=== PATIENT | male | born 1965 | race Caucasian/White ===

== ENCOUNTER 2017-08-25 06:44 | Day surgery (SDC) | payer OTHER ==
[2017-08-25] MEDS ORDERED: MIDAZOLAM 1 MG/ML 2 ML INJ (08:38)
[2017-08-25] MEDS ORDERED: FENTAnyl 50 MCG/ML VIAL ×2 (08:38)
[2017-08-25] MEDS ORDERED: LIDOCAINE 2% (SDV) 5 ML INJ (08:39)
[2017-08-25] MEDS ORDERED: PROPOFOL 20 ML (08:39)
== END 2017-08-25 11:18 | disposition home or self-care (01) ==
LOC: GIL 06:44
DX: Z12.11 Encounter for screening for malignant neoplasm of colon (principal); C21.0 Malignant neoplasm of anus, unspecified; K64.4 Residual hemorrhoidal skin tags
CPT/HCPCS: 45380

== ENCOUNTER 2018-01-11 08:00 | Day surgery (SDC) | payer OTHER ==
[2018-01-11] MEDS ORDERED: HEPARIN 1000 UNITS/ML 10 ML INJ (08:07)
[2018-01-11] MEDS ORDERED: SOD CHLORIDE 0.9% 1,000 ML IV (08:30)
[2018-01-11] MEDS: CEFAZOLIN 1 GM/50 ML (PMX) 50 ML IVPB ×2 (10:00→10:29)
[2018-01-11] MEDS: FENTAnyl 50 MCG/ML VIAL ×2 (10:45→11:00)
[2018-01-11] MEDS: MIDAZOLAM 1 MG/ML 2 ML INJ ×2 (10:45→10:53)
[2018-01-11] MEDS: LIDOCAINE 1%/EPI 30 ML INJ (10:55)
[2018-01-11] MEDS: POLYMYXIN/BACITRACIN 1L IRRIG IRR (11:00)
[2018-01-11] MEDS ORDERED: HYDROCODONE/APAP (5/325) TAB PO (12:00)
== END 2018-01-11 13:14 | disposition home or self-care (01) ==
LOC: SDS 08:00
DX: C21.0 Malignant neoplasm of anus, unspecified (principal)
CPT/HCPCS: 36561; 76942

== ENCOUNTER 2018-04-11 07:14 | Day surgery (SDC) | payer OTHER ==
[2018-04-11] MEDS ORDERED: LIDOCAINE 4% SOLUTION 50 ML BTL (07:50)
[2018-04-11] MEDS ORDERED: MIDAZOLAM 1 MG/ML 2 ML INJ ×2 (09:23→09:24)
[2018-04-11] MEDS ORDERED: FENTAnyl 50 MCG/ML VIAL (09:24)
== END 2018-04-11 12:59 | disposition home or self-care (01) ==
LOC: GIL 07:14
DX: K29.50 Unspecified chronic gastritis without bleeding (principal); K21.0 Gastro-esophageal reflux disease with esophagitis
CPT/HCPCS: 43239; 88305; 88312